=== PATIENT | male | born 1990 | race Caucasian/White ===

== ENCOUNTER 2023-04-15 12:20 | Emergency (ER) | payer OTHER ==
[2023-04-15 12:30] VITALS: BP 149/75; PULSE 72; RESP 16; TEMP 98.7; BMI 20.9
[2023-04-15 13:15] LABS: HEMATOCRIT 43.5 % (35.4-49); HEMOGLOBIN 15.1 G/dL (11.7-16.9); MCH 31.3 pg (25.7-33.7); MCHC 34.6 g/dl (32.0-35.9); MEAN CELL VOLUME 90.5 fl (80-96); MEAN PLT VOLUME 8.6 fl (7.5-11.1); PLATELET COUNT 203.9 10^3/uL (134-434); RBC 4.81 10^6/uL (4.00-5.60); WHITE BLOOD COUNT 10.7 10^3/uL (4.0-10.8)
[2023-04-15 13:19] LABS: PLATELET ESTIMATE ADEQUATE
[2023-04-15 13:23] LABS: ALBUMIN 4.4 g/dl (3.4-5.0); BILIRUBIN,TOTAL 0.9 mg/dl (0.2-1); CALCIUM 9.5 mg/dl (8.5-10.1); POTASSIUM 3.5 mmol/L (3.5-5.1); TOT PROT 6.6 g/dl (6.4-8.2)
[2023-04-15] MEDS ORDERED: METOCLOPRAMIDE HCL INJECTION 10 MG/2 ML VIAL IVPB ONE (13:31)
[2023-04-15] MEDS ORDERED: SODIUM CHLORIDE 1,000 ML IV STA (13:38)
[2023-04-15] MEDS ORDERED: METOCLOPRAMIDE HCL INJECTION 10 MG/2 ML VIAL ONE (13:38)
== END 2023-04-15 15:45 | disposition home or self-care (01) ==
LOC: FER 12:20
PROC: 3E033GC Introduction of Other Therapeutic Substance into Peripheral Vein, Percutaneous Approach (ICD-10-PCS; principal; 2023-04-15)
PROC: 3E0337Z Introduction of Electrolytic and Water Balance Substance into Peripheral Vein, Percutaneous Approach (ICD-10-PCS; 2023-04-15)
DX: R63.0 Anorexia (principal); R53.83 Other fatigue; R11.0 Nausea; R10.9 Unspecified abdominal pain; K59.00 Constipation, unspecified; Z20.822 Contact with and (suspected) exposure to COVID-19
CPT/HCPCS: 0241U-QW; 36415; 80053; 84443; 85025; 99284-25